=== PATIENT | male | born 1990 | race Two or more races ===

== ENCOUNTER 2020-05-01 05:42 | Inpatient (IN) | payer MEDICAID ==
[~2020-05-01] VITALS: Ht 182.9 cm; Wt 140.0 kg
[2020-05-01] MEDS ORDERED: ACETAMINOPHEN 650 mg PER 20 mL UD PO ONE (06:00)
[2020-05-01] MEDS ORDERED: ACETAMINOPHEN 325 MG TAB PO ONE ×2 (06:00)
[2020-05-01 06:35] LABS: Basophils # (auto) 0.1 10 ^3/uL (0-0.2); Basophils % (auto) 0.3 % (0.0-2.0); Eosinophils # (auto) 0 10 ^3/uL (0-0.8); Hematocrit 48.1 % (41.0-53.0); Hemoglobin 16.4 g/dL (13.5-17.5); Lymphocytes # (auto) 1.2 10 ^3/uL (0.4-5.4); Lymphocytes % (auto) 5.6 % (10.0-50.0); Mean Corpuscular Hemoglobin 30.8 pg (28.0-32.0); Mean Corpuscular Hgb Conc. 34.1 g/dL (32.0-36.0); Mean Corpuscular Volume 90.4 fL (80.0-100.0); Monocytes # (auto) 1.3 10 ^3/uL (0-1.3); Monocytes % (auto) 6.2 % (0.0-12.0); Neutrophils % (auto) 87.9 % (37.0-80.0); Nucleated Red Blood Cells % 0.5 %; Platelet Count (auto) 310 10^3/uL (140-450); Red Blood Cells 5.32 10^6/uL (4.5-5.90); Red Cell Distribution Width 13.1 % (11.8-14.3); White Blood Cell 21.6 10^3/uL (4.4-10.8)
[2020-05-01] MEDS ORDERED: SODIUM CHLORIDE 0.9% 1,000 ML IV ONE ×3 (06:53→08:45)
[2020-05-01 07:02] LABS: Albumin 3.6 g/dL (3.4-5.0); Amylase 25 U/L (25-115); Anion Gap 12 (5-15); Blood Urea Nitrogen 15 mg/dL (7-18); Calcium 8.7 mg/dL (8.5-10.1); Carbon Dioxide 22 mmol/L (21-32); Chloride 98 mmol/L (98-107); Glucose 110 mg/dL (74-106); Lipase 71 U/L (73-393); Potassium 3.1 mmol/L (3.5-5.1); Sodium 132 mmol/L (136-145)
[2020-05-01 07:09] LABS: Alanine Aminotransferase 48 U/L (16-61); Alkaline Phosphatase 71 U/L (45-117); Aspartate Aminotransferase 17 U/L (15-37); Bilirubin, Total 2.5 mg/dL (0.2-1.0); GFR African American 63 mL/min; GFR Non-African American 52 mL/min; Total Protein 8.6 g/dL (6.4-8.2)
[2020-05-01] MEDS ORDERED: VANCOMYCIN 1GM/250ML 250 ML IV ONE (07:45)
[2020-05-01] MEDS ORDERED: PIPERACILLIN-TAZOB 3.375GM 100 ML IV ONE (07:45)
[2020-05-01] MEDS ORDERED: NITROGLYCERIN 0.4 MG SL TAB SL PRN (08:45)
[2020-05-01] MEDS ORDERED: MORPHINE SULF INJ 2 MG/ML SYRINGE 1ML IV PRN ×2 (08:45)
[2020-05-01] MEDS ORDERED: ONDANSETRON HCL 4 MG/2 ML VIAL IV PRN ×2 (08:45→14:15)
[2020-05-01 08:49] LABS: INR 1.11 (0.9-1.15)
[2020-05-01] MEDS: POTASSIUM CHL 20MEQ/100ML 100 ML IV SCH ×2 (09:15→10:51)
[2020-05-01] MEDS: SOD CHL 0.9%/ KCL 20MEQ 1,000 ML IV SCH ×2 (09:45→18:33)
[2020-05-01 10:42] LABS: INR 1.15 (0.9-1.15); Partial Thromboplastin Time 34.7 sec (23.64-32.05)
[2020-05-01] MEDS ORDERED: MIDAZOLAM HCL 1MG/1ML-2 ML VIAL ONE (11:59)
[2020-05-01] MEDS ORDERED: fentaNYL CITRATE 100 MCG/2 ML VL ONE (11:59)
[2020-05-01] MEDS ORDERED: HYDROmorphone HCL 2 MG/ML VL ONE (11:59)
[2020-05-01] MEDS ORDERED: ROCURONIUM 10MG/ML 10ML VIAL IV ONE (11:59)
[2020-05-01] MEDS ORDERED: PROPOFOL 10 MG/ML 20 ML IV ONE (12:00)
[2020-05-01] MEDS ORDERED: KETOROLAC TROMETH 30 MG/ML 1ML VIAL ONE (12:00)
[2020-05-01] MEDS ORDERED: LIDOCAINE 2% (LOCAL ANESTH.) PF 5ml SDV ONE (12:00)
[2020-05-01] MEDS ORDERED: GLYCOPYRROLATE 0.2 MG/ML 1ML VIAL ONE ×2 (12:00→13:17)
[2020-05-01] MEDS ORDERED: ONDANSETRON HCL 4 MG/2 ML VIAL ONE (12:00)
[2020-05-01] MEDS ORDERED: DexAMETHasone SOD PHOS 10MG/1ML VIAL INJ ONE (12:00)
[2020-05-01] MEDS ORDERED: POVIDONE IODINE 10 % TOPICAL OINT 30GM TOP ONE (12:18)
[2020-05-01 12:40] VITALS: BP 109/64
[2020-05-01 13:00] VITALS: BP 109/64
[2020-05-01] MEDS ORDERED: NEOSTIGMINE 1 MG/ML INJ (10mg/10ML VIAL) ONE (13:17)
[2020-05-01] MEDS ORDERED: HYDROmorphone HCL 2 MG/ML VL IV PRN (13:30)
[2020-05-01] MEDS ORDERED: D5W/SOD CHL 0.45%/KCL 20MEQ 1,000 ML IV ONE (13:30)
[2020-05-01] MEDS ORDERED: NALOXONE HCL 0.4 MG/ML VIAL ONE (13:31)
[2020-05-01] MEDS ORDERED: PIPERACILLIN-TAZOB 3.375GM 100 ML IV SCH (14:00)
[2020-05-01] MEDS ORDERED: ceFAZolin 1GM/50ML 50 ML IV SCH (14:00)
[2020-05-01] MEDS ORDERED: metroNIDAZOLE 500MG/100ML 100 ML IV SCH (15:00)
[2020-05-01 15:18] VITALS: BP 95/47
[2020-05-01] MEDS: ceFAZolin 1GM/50ML 50 ML IV SCH ×2 (16:08→23:06)
[2020-05-01] MEDS: metroNIDAZOLE 500MG/100ML 100 ML IV SCH (16:09)
[2020-05-01 16:31] VITALS: BP 92/53
[2020-05-01] MEDS: PIPERACILLIN-TAZOB 3.375GM 100 ML IV SCH (18:30)
[2020-05-01 21:35] VITALS: BP 82/47
[2020-05-01 23:15] VITALS: BP 93/54
[2020-05-02] MEDS: metroNIDAZOLE 500MG/100ML 100 ML IV SCH ×2 (00:18→10:07)
[2020-05-02] MEDS: SOD CHL 0.9%/ KCL 20MEQ 1,000 ML IV SCH ×4 (00:45→23:58)
[2020-05-02] MEDS: PIPERACILLIN-TAZOB 3.375GM 100 ML IV SCH ×3 (00:48→11:32)
[2020-05-02 03:27] VITALS: BP 93/54
[2020-05-02 05:00] VITALS: BP 120/58
[2020-05-02 07:45] LABS: Basophils # (auto) 0 10 ^3/uL (0-0.2); Eosinophils # (auto) 0 10 ^3/uL (0-0.8); Hematocrit 38.2 % (41.0-53.0); Hemoglobin 12.9 g/dL (13.5-17.5); Lymphocytes % (auto) 4.9 % (10.0-50.0); Mean Corpuscular Hemoglobin 30.9 pg (28.0-32.0); Mean Corpuscular Hgb Conc. 33.8 g/dL (32.0-36.0); Mean Corpuscular Volume 91.5 fL (80.0-100.0); Monocytes # (auto) 1.1 10 ^3/uL (0-1.3); Monocytes % (auto) 5.7 % (0.0-12.0); Neutrophils # (auto) 17.6 10 ^3/uL (1.6-8.6); Neutrophils % (auto) 89.4 % (37.0-80.0); Platelet Count (auto) 235 10^3/uL (140-450); Red Blood Cells 4.18 10^6/uL (4.5-5.90); Red Cell Distribution Width 13.1 % (11.8-14.3); White Blood Cell 19.7 10^3/uL (4.4-10.8)
[2020-05-02] MEDS: ceFAZolin 1GM/50ML 50 ML IV SCH ×3 (07:48→23:57)
[2020-05-02 07:55] LABS: Potassium 3.6 mmol/L (3.5-5.1)
[2020-05-02 07:57] LABS: INR 1.23 (0.9-1.15); Partial Thromboplastin Time 35.1 sec (23.64-32.05)
[2020-05-02 08:05] LABS: Albumin 2.5 g/dL (3.4-5.0); BUN/Creatinine Ratio 14.1; Bilirubin, Total 1.2 mg/dL (0.2-1.0); Calcium 8.3 mg/dL (8.5-10.1); Total Protein 6.8 g/dL (6.4-8.2)
[2020-05-02 09:00] VITALS: BP 97/54
[2020-05-02 12:56] VITALS: BP 97/58
[2020-05-02 17:00] VITALS: BP 98/71
[2020-05-02] MEDS ORDERED: MULT-1018 PO (18:27)
[2020-05-02] MEDS ORDERED: OMEG100078 PO (18:27)
[2020-05-02] MEDS ORDERED: IBUP600T27 PO (18:27)
[2020-05-02] MEDS: HYDROmorphone HCL 2 MG/ML VL IV PRN (20:03)
[2020-05-02 22:00] VITALS: BP 93/66
[2020-05-03 05:00] VITALS: BP 99/65
[2020-05-03 06:00] LABS: Basophils # (auto) 0 10 ^3/uL (0-0.2); Basophils % (auto) 0.1 % (0.0-2.0); Eosinophils # (auto) 0 10 ^3/uL (0-0.8); Eosinophils % (auto) 0.1 % (0.0-7.0); Hematocrit 38.2 % (41.0-53.0); Hemoglobin 12.8 g/dL (13.5-17.5); Lymphocytes # (auto) 1.9 10 ^3/uL (0.4-5.4); Mean Corpuscular Hemoglobin 30.7 pg (28.0-32.0); Mean Corpuscular Hgb Conc. 33.4 g/dL (32.0-36.0); Mean Corpuscular Volume 92.1 fL (80.0-100.0); Monocytes # (auto) 1.2 10 ^3/uL (0-1.3); Monocytes % (auto) 7.3 % (0.0-12.0); Neutrophils # (auto) 12.8 10 ^3/uL (1.6-8.6); Neutrophils % (auto) 80.5 % (37.0-80.0); Nucleated Red Blood Cells % 0.1 %; Platelet Count (auto) 269 10^3/uL (140-450); Red Blood Cells 4.15 10^6/uL (4.5-5.90); Red Cell Distribution Width 13.2 % (11.8-14.3); White Blood Cell 15.9 10^3/uL (4.4-10.8)
[2020-05-03 06:18] LABS: BUN/Creatinine Ratio 19.5; Calcium 8.5 mg/dL (8.5-10.1); Potassium 3.7 mmol/L (3.5-5.1)
[2020-05-03 09:00] VITALS: BP 99/55
[2020-05-03] MEDS: ceFAZolin 1GM/50ML 50 ML IV SCH ×3 (09:22→23:46)
[2020-05-03] MEDS: SOD CHL 0.9%/ KCL 20MEQ 1,000 ML IV SCH ×3 (09:23→22:10)
[2020-05-03 13:00] VITALS: BP 108/57
[2020-05-03] MEDS ORDERED: HYDROcodone-ACET 5/325MG TAB PO PRN (13:45)
[2020-05-03 17:00] VITALS: BP 119/66
[2020-05-03 22:00] VITALS: BP 132/73
[2020-05-03] MEDS: HYDROmorphone HCL 2 MG/ML VL IV PRN (22:10)
[2020-05-04 05:00] VITALS: BP 119/79
[2020-05-04 05:27] LABS: Basophils # (auto) 0 10 ^3/uL (0-0.2); Basophils % (auto) 0.2 % (0.0-2.0); Eosinophils # (auto) 0.1 10 ^3/uL (0-0.8); Eosinophils % (auto) 0.5 % (0.0-7.0); Hematocrit 38.1 % (41.0-53.0); Hemoglobin 12.9 g/dL (13.5-17.5); Lymphocytes # (auto) 1.6 10 ^3/uL (0.4-5.4); Lymphocytes % (auto) 12.1 % (10.0-50.0); Mean Corpuscular Hgb Conc. 33.8 g/dL (32.0-36.0); Mean Corpuscular Volume 91.7 fL (80.0-100.0); Monocytes # (auto) 1.2 10 ^3/uL (0-1.3); Neutrophils # (auto) 10.5 10 ^3/uL (1.6-8.6); Neutrophils % (auto) 78.2 % (37.0-80.0); Platelet Count (auto) 305 10^3/uL (140-450); Red Blood Cells 4.15 10^6/uL (4.5-5.90); Red Cell Distribution Width 13.5 % (11.8-14.3); White Blood Cell 13.5 10^3/uL (4.4-10.8)
[2020-05-04 05:39] LABS: Potassium 3.5 mmol/L (3.5-5.1)
[2020-05-04 05:46] LABS: BUN/Creatinine Ratio 13.6; Calcium 8.8 mg/dL (8.5-10.1)
[2020-05-04 09:00] VITALS: BP 134/81
[2020-05-04] MEDS: SOD CHL 0.9%/ KCL 20MEQ 1,000 ML IV SCH (09:10)
[2020-05-04] MEDS: ceFAZolin 1GM/50ML 50 ML IV SCH (09:10)
[2020-05-04 12:11] VITALS: BP 134/81
== END 2020-05-04 13:20 | disposition home or self-care (01) | DRG 710 ==
LOC: ER 05:42 → TELE 05:43 → TELE-WESTW 11:46 → WEST WING 05-04 06:04
PROVIDERS: ADMIT Nurse Practitioner Acute Care; ATTEND Internal Medicine
PROC: 3E013GC Introduction of Other Therapeutic Substance into Subcutaneous Tissue, Percutaneous Approach (ICD-10-PCS; 2020-05-01)
PROC: 0DTJ4ZZ Resection of Appendix, Percutaneous Endoscopic Approach (ICD-10-PCS; principal; 2020-05-01 12:35)
PROC: 5A09357 Assistance with Respiratory Ventilation, Less than 24 Consecutive Hours, Continuous Positive Airway Pressure (ICD-10-PCS; 2020-05-02)
DX: A41.9 Sepsis, unspecified organism (principal); N17.0 Acute kidney failure with tubular necrosis; E66.01 Morbid (severe) obesity due to excess calories; K35.32 Acute appendicitis with perforation, localized peritonitis, and gangrene, without abscess; R16.0 Hepatomegaly, not elsewhere classified; Z68.41 Body mass index [BMI] 40.0-44.9, adult; K76.0 Fatty (change of) liver, not elsewhere classified; E87.6 Hypokalemia; G47.30 Sleep apnea, unspecified; F17.210 Nicotine dependence, cigarettes, uncomplicated; J96.01 Acute respiratory failure with hypoxia
CPT/HCPCS: 36415; 71045; 74176; 80048; 80053; 82150; 83605; 83690; 84484; 85025; 85610; 85730; 86850; 86900; 86901; 87040; 87070; 87075; 87076; 87077; 87186; 87205; 88302; 93005; 96361; 96365; 96367; 99291; G0378; J0690; J1100; J1885; J2001; J2250; J2405; J2543; J2704; J3480; J3490